=== PATIENT | male | born 1945 | race Caucasian/White ===

== ENCOUNTER → 2016-03-15 | Outpatient (CLI) | payer OTHER ==
[~2016-03-15] MED LIST: ACETAMINOPHEN-120 ML PO; ACETAMINOPHEN325 M1; ADVAIR 250-501 EACH; AVELOX ABC PAC400 MG PO; COMBIVENT; CRESTOR10 MG; DOXYCYCLINE 10100 MG PO; DULERA 100 MCG/13 GM IH; NEXIUM40 MG; NICOTINE TRANSD21 M1; PROAIR HFA8.5 GM; PROTONIX40 M2; SPIRIVA; VENTOLIN HFA INH8 GM; VENTOLIN17 GM INH; ZPAK PO
== END ==
LOC: CAT 07:26
DX: R91.1 Solitary pulmonary nodule (principal); J43.9 Emphysema, unspecified; R91.8 Other nonspecific abnormal finding of lung field

== ENCOUNTER → 2017-03-21 | Outpatient (CLI) | payer OTHER | LOC: CAT 07:32 | DX: R91.1 Solitary pulmonary nodule (principal); J43.8 Other emphysema; J44.9 Chronic obstructive pulmonary disease, unspecified ==

== ENCOUNTER → 2018-03-12 | Outpatient (CLI) | payer OTHER | LOC: CAT 07:30 | DX: J98.4 Other disorders of lung (principal); I70.90 Unspecified atherosclerosis; K76.89 Other specified diseases of liver; R91.8 Other nonspecific abnormal finding of lung field ==

== ENCOUNTER → 2018-07-09 | Outpatient (CLI) | payer OTHER | LOC: MRI 14:57 | DX: M47.816 Spondylosis without myelopathy or radiculopathy, lumbar region (principal); M51.26 Other intervertebral disc displacement, lumbar region; M48.062 Spinal stenosis, lumbar region with neurogenic claudication; M12.88 Other specific arthropathies, not elsewhere classified, other specified site; G89.29 Other chronic pain ==

== ENCOUNTER → 2019-05-01 | Outpatient (CLI) | payer OTHER | LOC: CAT 08:35 | DX: J43.9 Emphysema, unspecified (principal); J47.9 Bronchiectasis, uncomplicated; J98.4 Other disorders of lung; R91.8 Other nonspecific abnormal finding of lung field; I25.10 Atherosclerotic heart disease of native coronary artery without angina pectoris; N28.1 Cyst of kidney, acquired ==

== ENCOUNTER → 2019-09-24 | Outpatient (CLI) | payer OTHER | LOC: CAT 08:08 | PROVIDERS: ATTEND Pediatrics | DX: J43.8 Other emphysema (principal); I25.10 Atherosclerotic heart disease of native coronary artery without angina pectoris; R91.1 Solitary pulmonary nodule ==

== ENCOUNTER → 2019-10-23 | Outpatient (CLI) | payer OTHER | LOC: CAT 07:47 | PROVIDERS: ATTEND Family Medicine | DX: Z13.6 Encounter for screening for cardiovascular disorders (principal); E78.00 Pure hypercholesterolemia, unspecified; I25.10 Atherosclerotic heart disease of native coronary artery without angina pectoris ==

== ENCOUNTER → 2019-10-23 | Outpatient (CLI) | payer OTHER | LOC: ULTRA 07:41 | PROVIDERS: ATTEND Family Medicine | DX: I65.23 Occlusion and stenosis of bilateral carotid arteries (principal); Z86.73 Personal history of transient ischemic attack (TIA), and cerebral infarction without residual deficits ==

== ENCOUNTER → 2019-10-28 | Outpatient (CLI) | payer OTHER | LOC: SJCVC 11:42 | PROVIDERS: ATTEND Internal Medicine Cardiovascular Disease | DX: R94.31 Abnormal electrocardiogram [ECG] [EKG] (principal); I49.9 Cardiac arrhythmia, unspecified; I45.10 Unspecified right bundle-branch block; I25.10 Atherosclerotic heart disease of native coronary artery without angina pectoris; R42 Dizziness and giddiness; E78.5 Hyperlipidemia, unspecified; J44.9 Chronic obstructive pulmonary disease, unspecified; R93.1 Abnormal findings on diagnostic imaging of heart and coronary circulation; E78.00 Pure hypercholesterolemia, unspecified; F17.200 Nicotine dependence, unspecified, uncomplicated ==

== ENCOUNTER → 2019-11-17 | Outpatient (CLI) | payer OTHER | LOC: SJCVCIMAG 09:11 | PROVIDERS: ATTEND Internal Medicine Cardiovascular Disease | DX: I25.10 Atherosclerotic heart disease of native coronary artery without angina pectoris (principal); I49.3 Ventricular premature depolarization; R00.0 Tachycardia, unspecified; E78.00 Pure hypercholesterolemia, unspecified; J44.9 Chronic obstructive pulmonary disease, unspecified; I10 Essential (primary) hypertension; F17.200 Nicotine dependence, unspecified, uncomplicated; Z79.899 Other long term (current) drug therapy ==

== ENCOUNTER → 2020-02-04 | Outpatient (CLI) | payer OTHER ==
[2020-02-04 10:30] LABS: BE(vivo) 0.3 mmol/L (-2 to +3); HCO3 23.9 mmol/L (22.0-26.0); PCO2 35.9 mmHg (35.0-45.0); PO2 70.1 mmHg (80.0-100.0); pH 7.441 (7.360-7.450); sO2 94.8 % (92.0-98.0)
== END ==
LOC: LAB 10:03
PROVIDERS: ATTEND Pediatrics
DX: J44.9 Chronic obstructive pulmonary disease, unspecified (principal); R06.02 Shortness of breath

== ENCOUNTER 2020-08-08 12:00 | Emergency (ER) | payer OTHER ==
[~2020-08-08] VITALS: Ht 185.4 cm; Wt 90.7 kg
[2020-08-08] MEDS ORDERED: VALACYCLOVIR1000 MG PO (12:52)
[2020-08-08] MEDS ORDERED: PREDNISONE 20 M20 MG PO (12:52)
[2020-08-08] MEDS ORDERED: NORCO5 PO (12:52)
[2020-08-08 13:10] VITALS: BP 133/87
== END 2020-08-08 13:10 | disposition home or self-care (01) ==
LOC: ER 12:00
DX: B02.9 Zoster without complications (principal); J44.9 Chronic obstructive pulmonary disease, unspecified; F17.210 Nicotine dependence, cigarettes, uncomplicated; Z87.442 Personal history of urinary calculi; Z88.2 Allergy status to sulfonamides; Z91.018 Allergy to other foods

== ENCOUNTER → 2020-09-24 | Outpatient (CLI) | payer OTHER ==
[~2020-09-24] MED LIST changes: +NORCO5 PO; +PREDNISONE 20 M20 MG PO; +VALACYCLOVIR1000 MG PO
== END ==
LOC: CAT 08:25
PROVIDERS: ATTEND Pediatrics
DX: I65.23 Occlusion and stenosis of bilateral carotid arteries (principal); J43.9 Emphysema, unspecified; R91.8 Other nonspecific abnormal finding of lung field; J98.4 Other disorders of lung